=== PATIENT | female | born 1985 | race Caucasian/White ===

== ENCOUNTER 2017-09-05 15:10 | Inpatient (IN) ==
[2017-09-05] MEDS ORDERED: ONDANSETRON 4 MG/2 ML VIAL IV PRN (15:26)
[2017-09-05] MEDS ORDERED: BUTORPHANOL 2 MG/ML VIAL IV PRN (15:26)
[2017-09-05] MEDS ORDERED: MEPERIDINE 50 MG/1 ML VIAL IV PRN (15:26)
[2017-09-05] MEDS ORDERED: DINOPROSTONE VAG GEL 10 MG SYRINGE VAG ONE (15:28)
[2017-09-05] MEDS: LACTATED RINGERS 1,000 ML IV SCH ×2 (15:40→23:58)
[2017-09-05 16:01] LABS: Basophils % 0.1 % (0.0-0.8); Eosinophils % 0.4 % (0.00-10.9); Hemoglobin 12.6 GM/DL (12.0-16.0); Immature Granulocytes % 0.7 %; Immature Granulocytes Absolute 0.07 #; Lymphocytes # 1.9 10*3/uL (1.4-4.0); Lymphocytes % 17.4 % (21.3-54.2); Mean Corpuscular HGB Conc 34.1 GM/DL (32-36); Mean Corpuscular Hemoglobin 30 PG (27-34); Mean Corpuscular Volume 89.4 FL (87-102); Mean Platelet Volume 10.1 FL (9.6-12.0); Monocytes # 0.7 10*3/uL (0.11-0.8); Monocytes % 6.8 % (1.7-12.7); Neutrophils % 74.6 % (38.7-73.9); Platelet Count 270 T/CUMM (130-400); Red Blood Count 4.14 MC/CUMM (3.8-5.5); Red Cell Distribution Width 13.5 % (9.3-17.3); White Blood Count 10.6 T/CUMM (4-12)
[2017-09-05 16:33] LABS: Alanine Aminotransferase 18 U/L (13-56); Albumin 2.8 G/DL (3.4-5.0); Alkaline Phosphatase 131 U/L (45-117); Aspartate Amino Transferase 21 U/L (0-37); Bilirubin,Total < 0.39 MG/DL (0.2-1.0); Blood Urea Nitrogen 9 MG/DL (7-18); Calcium 8.6 MG/DL (8.5-10.1); Glucose 74 MG/DL (74-106); Osmolality,Calculated 270.8 MOS/KG (273-304); Potassium 3.9 MMOL/L (3.5-5.1); Sodium 137 MMOL/L (136-145); Total Protein 6.3 G/DL (6.4-8.3)
[2017-09-06] MEDS ORDERED: OXYTOCIN/LR 20 UNIT/1,000 ML BAG IV SCH ×2 (02:00→15:30)
[2017-09-06] MEDS ORDERED: DINOPROSTONE VAG GEL 10 MG SYRINGE VAG ONE (08:22)
[2017-09-06] MEDS: LACTATED RINGERS 1,000 ML IV SCH (13:13)
[2017-09-06] MEDS ORDERED: LACTATED RINGERS 1,000 ML IV SCH ×2 (16:00→21:19)
[2017-09-06] MEDS ORDERED: PROMETHAZINE 25 MG/1 ML VIAL IM ONE (16:00)
[2017-09-06] MEDS ORDERED: ePHEDrine 50 MG/ML AMP IV PRN (16:00)
[2017-09-06] MEDS ORDERED: LACTATED RINGERS 500 ML IV ONE (16:00)
[2017-09-06] MEDS ORDERED: hydrOXYzine HCL 25 MG/1 ML VIAL IM PRN ×2 (16:00→23:41)
[2017-09-06] MEDS ORDERED: fentaNYL 2 MCG/ROPIV 0.2% EPID 150 ML EPIDURAL SCH (16:00)
[2017-09-06] MEDS ORDERED: diphenhydrAMINE 50 MG/1 ML VIAL IV PRN ×3 (16:00→22:15)
[2017-09-06] MEDS ORDERED: LACTATED RINGERS 1,000 ML IV ONE ×2 (16:00→16:17)
[2017-09-06] MEDS ORDERED: CITRIC ACID/SODIUM CITRATE 30 ML UDCUP ONE (16:12)
[2017-09-06] MEDS ORDERED: FAMOTIDINE 20 MG/2 ML VIAL IV ONE (16:17)
[2017-09-06] MEDS ORDERED: CITRIC ACID/SODIUM CITRATE 30 ML UDCUP PO ONE (16:17)
[2017-09-06] MEDS ORDERED: OXYTOCIN/LR 30 UNIT/1,000 ML BAG IV ONE (17:25)
[2017-09-06] MEDS ORDERED: OXYTOCIN 10 UNIT/ML VIAL IM ONE (17:25)
[2017-09-06] MEDS ORDERED: ceFAZolin 2,000 MG in PREMIX 1 EACH IV ONE (17:30)
[2017-09-06 18:20] LABS: Apearance,Urine CLEAR (Clear); Bilirubin,Urine Negative (Negative); Blood, Urine Negative (Negative); Glucose,Urine (UA) Negative (Negative); Ketones,Urine 80 mg/dL (Negative); Mucus,Urine Occasional /LPF (Occasional); Nitrite,Urine Negative (Negative); Protein,Urine Negative; RBC,Urine <1 /HPF (0-4); Squamous Epithelial Cell,Urine Occasional /HPF (0-10); Urine Color Yellow (Yellow); Urine Specific Gravity 1.015 (1.001-1.035); Urine Urobilinogen < 2.0 EU/DL (0.2-1.0); WBC,Urine 1 /HPF (0-6)
[2017-09-06 18:21] LABS: Cord Arterial Blood HCO3 21.2 MMOL/L
[2017-09-06 18:22] LABS: Cord Venous Blood HCO3 23.3 MMOL/L; Cord Venous Blood PCO2 39.5 MMHG; Cord Venous Blood PO2 27.4 MMHG
[2017-09-06] MEDS ORDERED: MORPHINE 10 MG/10 ML VIAL ONE (18:35)
[2017-09-06] MEDS ORDERED: PHENYLEPHRINE 1 MG/10 ML SYRINGE IV ONE (18:36)
[2017-09-06] MEDS ORDERED: LIDOCAINE MPF 2% /EPI 20 ML VIAL ONE (18:37)
[2017-09-06] MEDS ORDERED: RHO(D) IMMUNE GLOBULIN 300 MCG SYRINGE IM ONE (21:19)
[2017-09-06] MEDS ORDERED: OXYTOCIN/LR 20 UNIT/1,000 ML BAG IV ONE (21:19)
[2017-09-06] MEDS ORDERED: ONDANSETRON 4 MG/2 ML VIAL IV PRN (21:19)
[2017-09-06] MEDS ORDERED: SIMETHICONE CHEW 80 MG TABLET PO PRN (21:19)
[2017-09-06] MEDS ORDERED: ACETAMINOPHEN 325 MG TABLET PO PRN (21:19)
[2017-09-06] MEDS ORDERED: MAGNESIUM HYDROXIDE SUSP 30 ML UDCUP PO PRN (21:19)
[2017-09-07] MEDS: DOCUSATE SODIUM 100 MG CAPSULE PO SCH ×3 (01:48→21:34)
[2017-09-07] MEDS: IBUPROFEN 800 MG TABLET PO PRN ×2 (03:33→15:38)
[2017-09-07 06:58] LABS: Basophils % 0.1 % (0.0-0.8); Eosinophils % 0.1 % (0.00-10.9); Hematocrit 32.6 VOL% (35.7-47.0); Hemoglobin 11.2 GM/DL (12.0-16.0); Immature Granulocytes % 0.7 %; Immature Granulocytes Absolute 0.08 #; Lymphocytes # 1.8 10*3/uL (1.4-4.0); Mean Corpuscular HGB Conc 34.4 GM/DL (32-36); Mean Corpuscular Hemoglobin 31 PG (27-34); Mean Corpuscular Volume 88.8 FL (87-102); Mean Platelet Volume 10.1 FL (9.6-12.0); Monocytes # 0.8 10*3/uL (0.11-0.8); Monocytes % 6.4 % (1.7-12.7); Neutrophils # 9.5 10*3/uL (1.4-7.4); Neutrophils % 77.7 % (38.7-73.9); Platelet Count 211 T/CUMM (130-400); Red Blood Count 3.67 MC/CUMM (3.8-5.5); Red Cell Distribution Width 13.5 % (9.3-17.3); White Blood Count 12.2 T/CUMM (4-12)
[2017-09-07] MEDS: MULTIVITAMIN (PRENATAL) TABLET PO SCH (10:14)
[2017-09-08] MEDS: IBUPROFEN 800 MG TABLET PO PRN ×2 (02:13→10:51)
[2017-09-08 07:20] VITALS: BP 101/50
[2017-09-08] MEDS: MULTIVITAMIN (PRENATAL) TABLET PO SCH (09:06)
[2017-09-08] MEDS: DOCUSATE SODIUM 100 MG CAPSULE PO SCH (09:06)
[2017-09-08] MEDS ORDERED: MEASLES/MUMPS/RUBELLA VACCINE 0.5 ML VIAL SUBCUT ONE (11:04)
== END 2017-09-08 12:45 | disposition home or self-care (01) | DRG 766 ==
LOC: N.LDOUT 15:10 → N.LD 15:15 → SUPCPDRO 15:26 → N.LD 15:26 → N.OB 09-06 21:20
PROVIDERS: ADMIT Obstetrics & Gynecology; ATTEND Obstetrics & Gynecology
PROC: LDCSECT (ICD-10-PCS; 2017-09-06 17:25)

== ENCOUNTER 2020-09-22 07:56 | Inpatient (IN) ==
[2020-09-23 05:44] LABS: Basophils % 0.2 % (0.0-0.8); Eosinophils # 0.1 10*3/uL (0.0-0.87); Eosinophils % 0.7 % (0.00-10.9); Hematocrit 34.6 VOL% (35.7-47.0); Immature Granulocytes % 0.7 %; Immature Granulocytes Absolute 0.09 #; Lymphocytes % 16.5 % (21.3-54.2); Mean Corpuscular HGB Conc 34.7 GM/DL (32-36); Mean Corpuscular Volume 90.3 FL (87-102); Monocytes % 5.9 % (1.7-12.7); Platelet Count 210 T/CUMM (130-400); Red Blood Count 3.83 MC/CUMM (3.8-5.5); Red Cell Distribution Width 13.6 % (9.3-17.3); White Blood Count 12.2 T/CUMM (4-12)
[2020-09-23 06:09] LABS: Albumin 2.3 G/DL (3.4-5.0); Bilirubin,Total 0.4 MG/DL (0.2-1.0); Calcium 8.4 MG/DL (8.5-10.1); Osmolality,Calculated 272.7 MOS/KG (273-304); Potassium 3.3 MMOL/L (3.5-5.1); Total Protein 5.8 G/DL (6.4-8.2)
[2020-09-23] MEDS ORDERED: OXYTOCIN/LR 30 UNIT/1,000 ML BAG IV ONE (10:59)
[2020-09-23] MEDS ORDERED: OXYTOCIN 10 UNIT/ML VIAL IM ONE (10:59)
[2020-09-23] MEDS ORDERED: LACTATED RINGERS 1,000 ML IV SCH ×2 (11:00→15:00)
[2020-09-23] MEDS ORDERED: CARBOPROST TROMETHAMINE 250 MCG/ML AMP IM ONE (12:18)
[2020-09-23] MEDS ORDERED: miSOPROStoL 200 MCG TABLET ONE (12:18)
[2020-09-23] MEDS ORDERED: METHYLERGONOVINE 0.2 MG/1 ML AMP ONE (12:18)
[2020-09-23] MEDS ORDERED: TRANEXAMIC ACID 1,000 MG/10 ML VIAL ONE (12:18)
[2020-09-23] MEDS ORDERED: CITRIC ACID/SODIUM CITRATE 30 ML UDCUP PO ONE (12:30)
[2020-09-23] MEDS ORDERED: FAMOTIDINE 20 MG/2 ML VIAL IV ONE (12:30)
[2020-09-23] MEDS ORDERED: BUPIVACAINE SPINAL 0.75% 2 ML AMP SPINAL ONE (13:03)
[2020-09-23] MEDS ORDERED: ONDANSETRON 4 MG/2 ML VIAL ONE (13:03)
[2020-09-23] MEDS ORDERED: diphenhydrAMINE 50 MG/1 ML VIAL ONE (13:13)
[2020-09-23] MEDS ORDERED: ePHEDrine 50 MG/ML VIAL ONE (14:02)
[2020-09-23] MEDS ORDERED: ACETAMINOPHEN INJ 1,000 MG/100 ML VIAL IV ONE (14:24)
[2020-09-23] MEDS ORDERED: KETOROLAC 30 MG/1 ML VIAL ONE (14:26)
[2020-09-23 14:37] LABS: Cord Venous Blood HCO3 23.8 MMOL/L; Cord Venous Blood PO2 40.4 MMHG
[2020-09-23 14:38] LABS: Cord Arterial Blood HCO3 22.9 MMOL/L
[2020-09-23 14:46] LABS: Bilirubin,Urine Negative (Negative); Blood, Urine Negative (Negative); Glucose,Urine (UA) Negative (Negative); Ketones,Urine 80 mg/dL (Negative); Mucus,Urine Moderate /LPF (Occasional); Nitrite,Urine Negative (Negative); Protein,Urine Negative; RBC,Urine 1 /HPF (0-4); Squamous Epithelial Cell,Urine Occasional /HPF (0-10); Urine Appearance CLEAR (Clear); Urine Color Yellow (Yellow); Urine Specific Gravity 1.026 (1.001-1.035); Urine Urobilinogen < 2.0 EU/DL (0.2-1.0)
[2020-09-23] MEDS ORDERED: MAGNESIUM HYDROXIDE SUSP 30 ML UDCUP PO PRN (14:58)
[2020-09-23] MEDS ORDERED: OXYTOCIN/LR 20 UNIT/1,000 ML BAG IV ONE (14:58)
[2020-09-23] MEDS ORDERED: ONDANSETRON 4 MG/2 ML VIAL IV PRN (14:58)
[2020-09-23] MEDS ORDERED: ACETAMINOPHEN 325 MG TABLET PO PRN (14:58)
[2020-09-23] MEDS ORDERED: SIMETHICONE CHEW 80 MG TABLET PO PRN (14:58)
[2020-09-23] MEDS ORDERED: RHO(D) IMMUNE GLOBULIN 300 MCG SYRINGE IM ONE (14:58)
[2020-09-23] MEDS ORDERED: ACETAMINOPHEN 500 MG TABLET PO SCH (20:30)
[2020-09-23] MEDS ORDERED: KETOROLAC 30 MG/1 ML VIAL IV SCH (20:30)
[2020-09-23 21:53] LABS: Basophils % 0.1 % (0.0-0.8); Eosinophils % 0.1 % (0.00-10.9); Hematocrit 34.7 VOL% (35.7-47.0); Hemoglobin 11.4 GM/DL (12.0-16.0); Immature Granulocytes % 0.6 %; Immature Granulocytes Absolute 0.09 #; Lymphocytes # 2.1 10*3/uL (1.4-4.0); Lymphocytes % 14.2 % (21.3-54.2); Mean Corpuscular HGB Conc 32.9 GM/DL (32-36); Mean Corpuscular Volume 93.8 FL (87-102); Mean Platelet Volume 9.7 FL (9.6-12.0); Monocytes % 6.2 % (1.7-12.7); Neutrophils % 78.8 % (38.7-73.9); Platelet Count 214 T/CUMM (130-400); Red Cell Distribution Width 13.6 % (9.3-17.3); White Blood Count 14.8 T/CUMM (4-12)
[2020-09-23] MEDS: DOCUSATE SODIUM 100 MG CAPSULE PO SCH (23:00)
[2020-09-24] MEDS: IBUPROFEN 800 MG TABLET PO PRN ×3 (03:53→21:11)
[2020-09-24 05:45] LABS: Basophils % 0.2 % (0.0-0.8); Eosinophils # 0.1 10*3/uL (0.0-0.87); Eosinophils % 0.5 % (0.00-10.9); Hematocrit 33.6 VOL% (35.7-47.0); Hemoglobin 11.4 GM/DL (12.0-16.0); Immature Granulocytes % 0.7 %; Immature Granulocytes Absolute 0.08 #; Lymphocytes # 1.4 10*3/uL (1.4-4.0); Lymphocytes % 11.6 % (21.3-54.2); Mean Corpuscular HGB Conc 33.9 GM/DL (32-36); Mean Corpuscular Volume 92.3 FL (87-102); Mean Platelet Volume 9.8 FL (9.6-12.0); Monocytes % 6.1 % (1.7-12.7); Neutrophils % 80.9 % (38.7-73.9); Platelet Count 222 T/CUMM (130-400); Red Blood Count 3.64 MC/CUMM (3.8-5.5); Red Cell Distribution Width 13.5 % (9.3-17.3); White Blood Count 11.6 T/CUMM (4-12)
[2020-09-24] MEDS: POTASSIUM CHLORIDE 20 MEQ TABLET PO PRN ×3 (07:49→13:26)
[2020-09-24] MEDS ORDERED: METOCLOPRAMIDE 10 MG TABLET PO SCH (08:00)
[2020-09-24] MEDS: MULTIVITAMIN (PRENATAL) TABLET PO SCH (09:14)
[2020-09-24] MEDS: DOCUSATE SODIUM 100 MG CAPSULE PO SCH ×2 (09:15→21:11)
[2020-09-25] MEDS: IBUPROFEN 800 MG TABLET PO PRN ×2 (03:06→11:15)
[2020-09-25 07:15] VITALS: BP 102/61
[2020-09-25] MEDS ORDERED: DIPH/TET/ACEL PERT BOOSTER VACCINE 0.5 ML VIAL IM ONE (08:15)
[2020-09-25] MEDS: DOCUSATE SODIUM 100 MG CAPSULE PO SCH (08:46)
[2020-09-25] MEDS: MULTIVITAMIN (PRENATAL) TABLET PO SCH (08:50)
== END 2020-09-25 11:40 | disposition home or self-care (01) | DRG 787 ==
LOC: N.LDOUT 07:56 → N.LD 08:02 → N.OB 09-23 18:04
PROVIDERS: ADMIT Obstetrics & Gynecology; ATTEND Obstetrics & Gynecology
PROC: LDCSECT (ICD-10-PCS; 2020-09-23 13:00)